=== PATIENT | female | born 1990 | race Caucasian/White ===

== ENCOUNTER 2021-10-20 18:52 | Outpatient (REF) | payer OTHER, SELFPAY | END 2021-10-20 18:53 | disposition home or self-care (01) | LOC: LBN 18:52 | PROVIDERS: Visit Provider Nurse Practitioner Family | DX: J02.9 Acute pharyngitis, unspecified (principal) | CPT/HCPCS: 87070 ==

== ENCOUNTER 2024-12-19 02:44 | Outpatient (CLI) | payer BC, SELFPAY ==
--- NOTE | 2024-12-19 14:31 | DI.RAD_ITS ---
Exam(s) XR FOOT LT COMPLETE EXAM: XR FOOT LT COMPLETE CLINICAL HISTORY: Left foot pain, M79.672. TECHNIQUE: 2D digital imaging was performed. COMPARISON: No exams were available for comparison FINDINGS: 3 views No evidence of acute fracture or diastasis of the Lisfranc joint. There are mild degenerative changes in the great toe metatarsophalangeal joint. There is a prominent inferior calcaneal spur. There is no calcification in the plantar fascia. Posteriorly there is abnormal swelling at the insertional aspect of the Achilles tendon on the posterior calcaneus and there is increased density in the pre Achilles fat pad. Also small enthesophyte on the posterior calcaneus. No significant osseous lesions IMPRESSION: Findings are probably consistent with insertional Achilles tendinitis/Ta syndrome and/or tearing of the distal Achilles tendon. Prominent inferior calcaneal spur noted DATA REPOSITORY: RADIATION DOSE DELIVERED:
== END 2024-12-19 03:04 ==
PROVIDERS: PCP Family Medicine; Visit Provider Podiatrist
DX: M79.672 Pain in left foot (principal); M76.62 Achilles tendinitis, left leg
CPT/HCPCS: 73630